=== PATIENT | female | born 2000 | race African-American/Black ===

== ENCOUNTER 2019-03-19 08:06 | Observation (INO) | payer BC ==
[~2019-03-19] VITALS: Ht 163.8 cm; Wt 54.9 kg
[~2019-03-19 08:06] MED LIST: PRED20TA PO
--- NOTE | 2019-03-19 08:33 | PHYS DOC ---
Past History Past Medical History: Asthma Past Surgical History: No Surgical History Smoking: Non-smoker Alcohol Use: None Drug Use: None Adult General Chief Complaint Chief Complaint: CHEST PAIN [facility] HPI Patient is a 18 year old female who presents with ending of chest pain. Patient complaining of substernal chest pain since yesterday as a constant and pressure pain and rated her pain 6-8/10 with episodes of shortness of breath and ge neralized weakness. Patient denies cough, fever and chills, history of chest pain or injury. Review of Systems Review of Systems Constitutional: Denies fever or chills [] Eyes: Denies change in visual acuity, redness, or eye pain [] HENT: Denies nasal congestion or sore throat [] Respiratory: Denies cough or shortness of breath [] Cardiovascular: No additional information not addressed in HPI [] GI: Denies abdominal pain, nausea, vomiting, bloody stools or diarrhea [] : Denies dysuria or hematuria [] Musculoskeletal: Denies back pain or joint pain [] Integument: Denies rash or skin lesions [] Neurologic: Denies headache, focal weakness or sensory changes [] Endocrine: Denies polyuria or polydipsia [] All other systems were reviewed and found to be within normal limits, except as documented in this note. Allergies Allergies Allergies Coded Allergies Type Severity Reaction Last Updated Verified benzoyl peroxide Allergy Severe 05/12/15 No cefadroxil Allergy Intermediate 05/12/15 No Physical Exam Physical Exam Constitutional: Well developed, well nourished, mild distress, non-toxic appearance. [] HENT: Normocephalic, atraumatic, oropharynx moist, no oral exudates, nose normal. [] Eyes: PERRLA, EOMI, conjunctiva normal, no discharge. [] Neck: Normal range of motion, no tenderness, supple, no stridor. [] Cardiovascular:Heart rate regular rhythm, no murmur [] Lungs & Thorax: Bilateral breath sounds clear to auscultation [] Abdomen: Bowel sounds normal, soft, no tenderness, no masses, no pulsatile masses. [] Skin: Warm, dry, no erythema, no rash. [] Back: No tenderness, no CVA tenderness. [] Extremities: No tenderness, no cyanosis, no clubbing, ROM intact, no edema. [] Neurologic: Alert and oriented X 3, normal motor function, normal sensory function, no focal deficits noted. [] Psychologic: Affect normal, judgement normal, mood normal. [] Current Patient Data Vital Signs Vital Signs Date Time Temp Pulse Resp B/P (MAP) Pulse Ox O2 Delivery O2 Flow Rate FiO2 03/19/19 08:15 76 18 99 Room Air EKG EKG EKG interpreted by me. EKG at 0817 showed normal sinus rhythm at a rate of 82, n o acute ST and T-wave abnormalities. Radiology/Procedures Radiology/Procedures [address] [address] IMAGING REPORT Signed PATIENT: JOSEPH CHAND ACCOUNT: [id number] : 2000 LOCATION: ER AGE: 18 SEX: F EXAM STATUS: REG ER ORD. PHYSICIAN: LEANNE PEREZ MD REASON: chest pain/heaviness PROCEDURE: CHEST PA & LATERAL CHEST PA LATERAL History: Chest pain, heaviness. Comparison: Two-view chest June 13, 2009. Findings: The cardiomediastinal silhouette is normal. Pulmonary vasculature is normal. The lungs are clear. No pleural effusion or pneumothorax is seen. There is no acute bone abnormality. There is left convexity lower thoracic and lumbar rotoscoliosis. IMPRESSION: No acute cardiopulmonary process. Electronically signed by: Erick Singh MD (03/19/2019 9:02 AM) [id number] DICTATED AND SIGNED BY: ERICK SINGH MD DATE: 03/19/19 0902 CC: LEANNE PEREZ MD; FRANCA JOHNSON NURSE HEALTHCARE MANAGER-C ~ [address] [address] IMAGING REPORT Signed PATIENT: JOSEPH CHAND ACCOUNT: [id number] : 2000 LOCATION: ER AGE: 18 SEX: F EXAM STATUS: REG ER ORD. PHYSICIAN: LEANNE PEREZ MD REASON: substernal pain x's 2 days PROCEDURE: ABDOMEN LTD Indication:Substernal pain for 2 days. TECHNIQUE: Grayscale, color Doppler and spectral waveform is of the abdomen obtained. COMPARISON:None FINDINGS: Pancreas within normal limits. IVC within normal limits. Main portal vein is patent with hepatopedal flow. CBD measures 4 mm in diameter and is within normal limits. Liver measures 14 cm in longest dimension and is normal in size and echogenicity. No cholelithiasis. IMPRESSION: No cholelithiasis. Electronically signed by: Ethan Allred DO (03/19/2019 10:21 AM) [facility] DICTATED AND SIGNED BY: ETHAN ALLRED DO DATE: 03/19/19 1021 CC: LEANNE PEREZ MD; FRANCA JOHNSON ~ Course & Med Decision Making Course & Med Decision Making Pertinent Labs and Imaging studies reviewed. (See chart for details) Evaluation of patient in ER showed 18-year-old female patient with complaining of chest pain since yesterday. Patient had unremarkable physical exam and EKG. Labs showed mild elevation of troponin. Dr. Menard was consulted for admission at 0927 to come and get repeat troponin that was reported 0.0 66 to Accepted admission at 1025. Dragon Disclaimer Dragon Disclaimer This electronic medical record was generated, in whole or in part, using a voice recognition dictation system. Departure Departure: Impression: Primary Impression: Acute chest pain Additional Impression: Elevated troponin Disposition: ADMITTED INPATIENT (at 1026) Admitting Physician: Keyshawn Menard (accepted admission at 1025) Condition: IMPROVED Referrals: FRANCA JOHNSON NP-C (PCP) HEART Score for Chest Pain PTs The HEART Score for CP Pts HEART Score for Chest Pain: HEART Score for Chest Pain Response (Comments) Value History Slighlty/Non-Suspicious 0 ECG Normal 0 Age < 45 0 Risk Factors No Risk Factors 0 Troponin < Normal Limit 0 Total 0 Risk Factors: Risk Factors: DM, Current or recent (<one month) smoker, HTN, HLP, family history of CAD, obesity. Risk Scores: Score 0 - 3: 2.5% MACE over next 6 weeks - Discharge Home Score 4 - 6: 20.3% MACE over next 6 weeks - Admit for Clinical Observation Score 7 - 10: 72.7% MACE over next 6 weeks - Early Invasive Strategies Problem Qualifiers LEANNE PEREZ MD Mar 19, 2019 08:33
[2019-03-19 08:42] LABS: BASO # 0.1 x10^3/uL (0.0-0.2); BASO % 1 % (0-3); EOS # 0.3 x10^3/uL (0.0-0.7); EOS % 3 % (0-3); HEMATOCRIT 40.4 % (36.0-47.0); HEMOGLOBIN 13.7 g/dL (12.0-15.5); LYMPH % 33 % (24-48); MEAN CORPUSCULAR HEMOGLOBIN 32 pg (25-35); MEAN CORPUSCULAR HGB CONC 34 g/dL (31-37); MEAN CORPUSCULAR VOLUME 93 fL (79-100); MONO # 0.7 x10^3/uL (0.0-1.1); MONO % 8 % (0-9); NEUT # 5.1 x10^3uL (1.8-7.7); NEUT % 55 % (31-73); PLATELET COUNT 331 x10^3/uL (140-400); RED BLOOD COUNT 4.35 x10^6/uL (3.50-5.40); RED CELL DISTRIBUTION WIDTH 13.5 % (11.5-14.5); WHITE BLOOD COUNT 9.2 x10^3/uL (4.0-11.0)
[2019-03-19] MEDS ORDERED: IV NORMAL SALINE 1,000ML 1,000 ML IV ONE (08:45)
[2019-03-19 08:57] LABS: ALBUMIN/GLOBULIN RATIO 1.3 (1.0-1.7); CALCIUM 9.6 mg/dL (8.5-10.1); CREATININE 0.8 mg/dL (0.6-1.0); GFR 110.7; MAGNESIUM 1.8 mg/dL (1.8-2.4); POTASSIUM 3.8 mmol/L (3.5-5.1); TOTAL BILIRUBIN 0.2 mg/dL (0.2-1.0); TOTAL PROTEIN 7.2 g/dL (6.4-8.2)
[2019-03-19] MEDS ORDERED: ASPIRIN 81 MG TAB.CHEW PO ONE (09:00)
--- NOTE | 2019-03-19 09:05 | RAD ---
CHEST PA LATERAL History: Chest pain, heaviness. Comparison: Two-view chest June 13, 2009. Findings: The cardiomediastinal silhouette is normal. Pulmonary vasculature is normal. The lungs are clear. No pleural effusion or pneumothorax is seen. There is no acute bone abnormality. There is left convexity lower thoracic and lumbar rotoscoliosis. IMPRESSION: No acute cardiopulmonary process. Electronically signed by: Erick Singh MD (03/19/2019 9:02 AM) [id number]
[2019-03-19 09:50] LABS: U PREG PATIENT NEGATIVE (NEG)
[2019-03-19 09:54] LABS: BACTERIA,URINE MOD /HPF (0-FEW); BILIRUBIN,URINE NEG (NEG); CLARITY,URINE HAZY; COLOR,URINE YELLOW; GLUCOSE,URINE NEG (NEG); NITRITE,URINE NEG (NEG); RBC,URINE 0 /HPF (0-2); UROBILINOGEN,URINE 0.2 mg/dL (0.2 mg/dL)
[2019-03-19 09:55] LABS: SQUAMOUS EPITHELIAL CELL,UR MANY /LPF
--- NOTE | 2019-03-19 10:23 | RAD ---
Indication:Substernal pain for 2 days. TECHNIQUE: Grayscale, color Doppler and spectral waveform is of the abdomen obtained. COMPARISON:None FINDINGS: Pancreas within normal limits. IVC within normal limits. Main portal vein is patent with hepatopedal flow. CBD measures 4 mm in diameter and is within normal limits. Liver measures 14 cm in longest dimension and is normal in size and echogenicity. No cholelithiasis. IMPRESSION: No cholelithiasis. Electronically signed by: Ethan Allred DO (03/19/2019 10:21 AM) [facility]
[2019-03-19 10:53] LABS: AMPHETAMINE/METHAMPHETAMINE NEG (NEG); BARBITURATES NEG (NEG); BENZODIAZEPINES NEG (NEG); CANNABINOIDS NEG (NEG); COCAINE NEG (NEG); METHADONE NEG (NEG); OPIATES NEG (NEG); PHENCYCLIDINE NEG (NEG)
--- NOTE | 2019-03-19 11:13 | HP ---
ADMIT DATE: 03/19/2019 ATTENDING PHYSICIAN: Dr. Freeman. CHIEF COMPLAINT: Chest pain. 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 She presented to the Emergency Department today complaining of localized chest pain, substernal in nature. It is somewhat sharp. It is associated with some shortness of breath. She denied any recent trauma. She has no allergies. As part of the workup, she had an initial EKG, which showed a sinus rhythm without any acute changes; however, her cardiac enzymes and troponin level was slightly elevated at 0.07, the upper limits of normal at this hospital is 0.05. She settled down a bit. She was given some pain relief and a repeat troponin second set drawn 2 hours later was still elevated at 0.06. She denied any recent JOBY FREEMAN MD DR: PRANAY/hammad JOB#: [id number] / [id number]
--- NOTE | 2019-03-19 11:21 | HP ---
ADMIT DATE: 03/19/2019 ATTENDING PHYSICIAN: Dr. Freeman. CHIEF COMPLAINT: Chest pain. 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 She had new onset today of nonexertional chest pain localized in nature, fairly gradual in onset. She denied any recent travel. She denied any fevers, chills, cough or congestion. Chest x-ray demonstrated no evidence of pneumonia. She had an EKG, which showed a sinus rhythm without any acute changes; however, her troponin level ordered in the ED was slightly elevated at 0.07 and the upper limits of normal at this hospital was 0.05. We checked a second troponin 2 hours later and it still remained elevated at 0.06. Because of her symptoms, she was admitted to the hospital for further evaluation, Cardiology consultation and echocardiogram. She is a nonsmoker, nondrinker. She is not diabetic. She is fairly healthy otherwise. PAST MEDICAL HISTORY: Unremarkable for any chronic illnesses. There is no history of hypertension, diabetes. SOCIAL HISTORY: She is a nonsmoker, nondrinker. She gets a Depo-Provera shot every 3 months. ALLERGIES: She has no recorded drug allergies. PRESCRIPTION MEDICATIONS: None except for the injectable contraceptive. FAMILY HISTORY: Her mom and dad are alive at age 46 and 49 respectively. No significant health issues. PAST SURGICAL HISTORY: She has not had any previous surgeries. REVIEW OF SYSTEMS: Significant for the localized chest pain. No fevers, chills, palpitations. No nausea, vomiting, diarrhea. No recent travel. All other systems reviewed and determined to be negative. She has some allergies to BENZOYL PEROXIDE and CEPHALOSPORINS. PHYSICAL EXAMINATION: GENERAL: When I saw her, this is a pleasant, thin young female in no acute distress. INITIAL VITAL SIGNS: Showed a blood pressure of 130 systolic, pulse is 76 and regular. She was afebrile. HEENT: Head is without trauma. Pupils are reactive. Sclerae nonicteric. Oropharynx clear. NECK: Supple. No bruits identified. LUNGS: Otherwise clear. CARDIOVASCULAR: Showed regular heart tones. No obvious gallops. Peripheral pulses are palpable full. ABDOMEN: Soft, scaphoid, nontender, no organomegaly. Bowel sounds are hypoactive. EXTREMITIES: Showed no cyanosis or edema. NEUROLOGIC: Findings focally intact. No deficits. PERTINENT LABORATORY STUDIES: Troponin levels as noted. The EKG showed no acute changes. IMPRESSION: 1. A 18-year-old female with atypical chest pain, moderate in severity, etiology is unclear. 2. Elevated troponins 2 sets that were slightly elevated. Certainly, this is concerning and a viral cardiomyopathy in early form should be ruled out. PLAN: 1. Admit to the inpatient unit. 2. Telemetry monitoring. 3. Echocardiogram. 4. Formal Cardiology consultation later today. JOBY FREEMAN MD DR: PRANAY/hammad JOB#: [id number] / [id number]
[2019-03-19 12:18] VITALS: BP 114/73
[2019-03-19 14:35] VITALS: BP 97/57
--- NOTE | 2019-03-19 16:22 | CARD ---
MR#: [id number] Date of Study: 03/19/2019 Ordering Physician: JOBY FREEMAN, Referring Physician: JOBY FREEMAN, Tech: Bonny Escamilla APPROVED REPORT EXAM: Two-dimensional and M-mode echocardiogram with Doppler and color Doppler. Other Information Quality : AverageHR: 60bpm INDICATION Chest Pain Elevated Troponin 2D DIMENSIONS RVDd2.5 (2.9-3.5cm)IVSd0.6 (0.7-1.1cm) Aortic Root(2D)2.7 (2.0-3.7cm)LVDd3.8 (3.9-5.9cm) PWd0.8 (0.7-1.1cm)LVDs2.7 (2.5-4.0cm) FS (%) 29.7 %SV35.4 ml LVEF(%)57.6 (>50%) Aortic Valve AoV Peak Norbert.109.1cm/sAoV VTI26.3cm AO Peak GR.4.8mmHgAO Mean GR.4mmHg DIANNE (VTI)2.36cm2 Mitral Valve MV E Npiyyutw267.0cm/sMV DECEL [id number] MV A Emjjtvqd85.6cm/sE/A Ratio2.5 Tricuspid Valve TR P. Shjckbvl866sw/sRAP GJMVDOYM1wyWu TR Peak Gr.82axJvKPYC62raSo LEFT VENTRICLE The left ventricle is normal size. There is normal left ventricular wall thickness. The left ventricu lar systolic function is normal. The Ejection Fraction is 55-60%. There is normal LV segmental wall m otion. The left ventricular diastolic function and filling is normal for age. RIGHT VENTRICLE The right ventricle is normal size. There is normal right ventricular wall thickness. The right ventr icular systolic function is normal. ATRIA The left atrium size is normal. The right atrium size is normal. The interatrial septum is intact wit h no evidence for an atrial septal defect or patent foramen ovale as noted on 2-D or Doppler imaging. AORTIC VALVE The aortic valve is normal in structure and function. Doppler and Color Flow revealed no significant aortic regurgitation. There is no significant aortic valvular stenosis. MITRAL VALVE The mitral valve is normal in structure and function. There is no evidence of mitral valve prolapse. There is no mitral valve stenosis. Doppler and Color Flow revealed no mitral valve regurgitation note d. TRICUSPID VALVE The tricuspid valve is normal in structure and function. Doppler and Color Flow revealed trace tricus pid regurgitation with an estimated PAP of 25 mmHg. There is no tricuspid valve prolapse or vegetatio n. There is no tricuspid valve stenosis. PULMONIC VALVE The pulmonic valve is not well visualized. Doppler and color-flow analysis was performed. GREAT VESSELS The aortic root is normal in size. The IVC is normal in size and collapses >50% with inspiration. PERICARDIAL EFFUSION There is small left pleural effusion. There is no evidence of significant pericardial effusion. Critical Notification Critical Value: No <Conclusion> The left ventricular systolic function is normal. The Ejection Fraction is 55-60%. There is normal LV segmental wall motion. Trace tricuspid regurgitation with an estimated PAP of 25 mmHg. There is no evidence of significant pericardial effusion. Signed by : Gordo Suarez, Electronically Approved : 03/19/2019 16:21:51
[2019-03-19] MEDS: HYDROmorphone PF 1 MG/ML DISP.SYRIN IVP PRN ×3 (16:56→22:39)
[2019-03-19 20:16] VITALS: BP 109/73
[2019-03-19 23:21] VITALS: BP 107/56
[2019-03-20] MEDS: LORazepam 1 MG TABLET PO PRN ×2 (00:03→09:23)
[2019-03-20 06:39] VITALS: BP 102/58
--- NOTE | 2019-03-20 07:53 | PDOC2 ---
CARDIAC CONSULT DATE OF CONSULT Date Of Consult DATE: 03/20/19 TIME: 07:47 REASON FOR CONSULT Reason for Consult Chest pain REFERRING PHYSICIAN Referring Physician Dr. Menard SOURCE Source: Chart review, Patient HPI History of Present Illness This is a 18 yo female who presented secondary to chest pain. Patient reports she was on he way to work yesterday morning and had feeling in her stomach that she was "on a roller coaster". Then began experiencing pain in her central chest. Describes as pressure. Associated with palpitations and tingling in her bilateral upper extremities. No nausea, dizziness, or diaphoresis. [place] slightly short of breath. No specific worsening or relieving factors. Pain seemed to improved without intervention. Pain occurred a couple of times yesterday, but not severe. No further overnight. Denies any recent illness, fevers. Troponin noted to be mildly elevated at 0.07 and repeat at 0.06. Echo showed preserved LV systolic function. No acute events noted on telemetry. Reports she is moving in the near future, but denies any significant stressors or feeling anxious. Does report significant caffeine consumption. PAST MEDICAL HISTORY Pulmonary: Asthma Psych: Anxiety, Depression PAST SURGICAL HISTORY Past Surgical History: No pertinent history FAMILY HISTORY Family History: Diabetes SOCIAL HISTORY Smoke: No ALCOHOL: none Drugs: None Lives: with Family CURRENT MEDICATIONS Current Medications Current Medications Sodium Chloride 1,000 ml @ 1,000 mls/hr 1X ONCE IV Last administered on 03/19/19at 08:45; Start 03/19/19 at 08:45; Stop 03/19/19 at 09:44; Status DC Aspirin (Children'S Aspirin) 324 mg 1X ONCE PO Last administered on 03/19/19at 09:00; Start 03/19/19 at 09:00; Stop 03/19/19 at 09:12; Status DC Hydromorphone HCl (Dilaudid) 0.4 mg PRN Q1HR PRN IVP PAIN Last administered on 03/19/19at 22:39; Start 03/19/19 at 17:00 Lorazepam (Ativan) 1 mg PRN Q8HRS PRN PO ANXIETY Last administered on 03/20/19at 00:03; Start 03/19/19 at 23:45 Active Scripts Active Prednisone 20 Mg Tablet 20 Mg PO BID ALLERGIES Allergies: Coded Allergies: benzoyl peroxide (Unverified Allergy, Severe, 05/12/15) cefadroxil (Unverified Allergy, Intermediate, 05/12/15) ROS Review of Systems 14 point ROS conducted with pertinent positives noted above in HPI. PHYSICAL EXAM General: Alert, Oriented X3, Cooperative, No acute distress HEENT: Atraumatic, Mucous membr. moist/pink Lungs: Clear to auscultation Heart: Regular rate, Normal S1, Normal S2, No murmurs Abdomen: Soft Extremities: No edema, Normal pulses Skin: No breakdown Neuro: Normal speech, Sensation intact Psych/Mental Status: Mental status NL, Mood NL MUSCULOSKELETAL: No deformity, No swelling VITALS Vital Signs Vital Signs Date Time Temp Pulse Resp B/P (MAP) Pulse Ox O2 Delivery O2 Flow Rate FiO2 03/20/19 06:39 98.3 82 18 102/58 (73) 100 03/19/19 23:26 Room Air LABS LABS Laboratory Tests Test 03/19/19 08:29 03/19/19 09:18 03/19/19 09:45 White Blood Count 9.2 x10^3/uL (4.0-11.0) Red Blood Count 4.35 x10^6/uL (3.50-5.40) Hemoglobin 13.7 g/dL (12.0-15.5) Hematocrit 40.4 % (36.0-47.0) Mean Corpuscular Volume 93 fL (79-100) Mean Corpuscular Hemoglobin 32 pg (25-35) Mean Corpuscular Hemoglobin Concent 34 g/dL (31-37) Red Cell Distribution Width 13.5 % (11.5-14.5) Platelet Count 331 x10^3/uL (140-400) Neutrophils (%) (Auto) 55 % (31-73) Lymphocytes (%) (Auto) 33 % (24-48) Monocytes (%) (Auto) 8 % (0-9) Eosinophils (%) (Auto) 3 % (0-3) Basophils (%) (Auto) 1 % (0-3) Neutrophils # (Auto) 5.1 x10^3uL (1.8-7.7) Lymphocytes # (Auto) 3.0 x10^3/uL (1.0-4.8) Monocytes # (Auto) 0.7 x10^3/uL (0.0-1.1) Eosinophils # (Auto) 0.3 x10^3/uL (0.0-0.7) Basophils # (Auto) 0.1 x10^3/uL (0.0-0.2) Sodium Level 140 mmol/L (136-145) Potassium Level 3.8 mmol/L (3.5-5.1) Chloride Level 104 mmol/L (98-107) Carbon Dioxide Level 24 mmol/L (21-32) Anion Gap 12 (6-14) Blood Urea Nitrogen 9 mg/dL (7-20) Creatinine 0.8 mg/dL (0.6-1.0) Estimated GFR (Cockcroft-Gault) 110.7 BUN/Creatinine Ratio 11 (6-20) Glucose Level 78 mg/dL (70-99) Calcium Level 9.6 mg/dL (8.5-10.1) Magnesium Level 1.8 mg/dL (1.8-2.4) Total Bilirubin 0.2 mg/dL (0.2-1.0) Aspartate Amino Transf (AST/SGOT) 14 U/L (15-37) Alanine Aminotransferase (ALT/SGPT) 23 U/L (14-59) Alkaline Phosphatase 114 U/L (46-116) Creatine Kinase 90 U/L (26-192) Troponin I Quantitative 0.073 ng/mL (0-0.055) 0.066 ng/mL (0-0.055) Total Protein 7.2 g/dL (6.4-8.2) Albumin 4.0 g/dL (3.4-5.0) Albumin/Globulin Ratio 1.3 (1.0-1.7) Lipase 79 U/L (73-393) Urine Collection Type Unknown Urine Color Yellow Urine Clarity Hazy Urine pH 6.0 Urine Specific [place] 1.020 Urine Protein Neg (NEG-TRACE) Urine Glucose (UA) Neg mg/dL (NEG) Urine Ketones (Stick) Neg mg/dL (NEG) Urine Blood Neg (NEG) Urine Nitrite Neg (NEG) Urine Bilirubin Neg (NEG) Urine Urobilinogen Dipstick 0.2 mg/dL (0.2 mg/dL) Urine Leukocyte Esterase Small (NEG) Urine RBC 0 /HPF (0-2) Urine WBC 5-10 /HPF (0-4) Urine Squamous Epithelial Cells Many /LPF Urine Bacteria Mod /HPF (0-FEW) Urine Mucus Marked /LPF Urine Test Negative (NEG) Urine Opiates Screen Neg (NEG) Urine Methadone Screen Neg (NEG) Urine Barbiturates Neg (NEG) Urine Phencyclidine Screen Neg (NEG) Urine Amphetamine/Methamphetamine Neg (NEG) Urine Benzodiazepines Screen Neg (NEG) Urine Cocaine Screen Neg (NEG) Urine Cannabinoids Screen Neg (NEG) Urine Ethyl Alcohol Neg (NEG) ECHOCARDIOGRAM Echocardiogram <Conclusion> The left ventricular systolic function is normal. The Ejection Fraction is 55-60%. There is normal LV segmental wall motion. Trace tricuspid regurgitation with an estimated PAP of 25 mmHg. There is no evidence of significant pericardial effusion. DATE: 03/19/19 1621 ASSESSMENT/PLAN Assessment/Plan 1. Chest pain, atypical. Troponin mildly elevated at 0.07. Repeat at 0.06. Echo with preserved LV systolic function. No further pain overnight. 2. Palpitations; no acute events noted on telemetry. Reports high caffeine intake. 3. Anxiety; as per PCP Recommendations May discharge from a cardiac standpoint Follow up in our office at [facility] April 17 at 12:45. Decrease caffeine intake Consider outpatient event monitor if palpitations recurrent. LEI SEGURA APRN Mar 20, 2019 07:53
[2019-03-20 09:21] VITALS: BP 113/71
--- NOTE | 2019-03-20 17:59 | DS ---
DATE OF DISCHARGE: 03/19/2019 ATTENDING PHYSICIAN: Dr. Freeman FINAL DISCHARGE DIAGNOSES: 1. Atypical chest pain, noncardiac in nature. 2. Underlying anxiety component. 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 She presented to the ED with nonexertional chest pain, localized, central, very symptomatic. She had a negative workup. She had a slightly elevated troponin. We suspect a viral etiology. She was admitted for further treatment and evaluation. PAST MEDICAL HISTORY: Unremarkable for any chronic illness. She only takes a Depo-Provera shot every 3 months for control. PHYSICAL EXAMINATION: Please see the dictated note. PERTINENT LABORATORY AND X-RAY STUDY: Her CBC showed normal hemoglobin 13.7 g/dL with the white count of 9200. Electrolytes, BUN, and creatinine were all within normal range. Liver functions were normal. The first set of troponin was 0.07, second set was 0.06. The echocardiogram showed a sinus rhythm, normal ejection fraction, and no wall motion abnormalities; otherwise, unremarkable echocardiogram. Chest x-ray showed no acute cardiopulmonary process. COURSE IN THE HOSPITAL: The patient was admitted. She was started on pain control along with p.r.n. Ativan for anxiety. She did well. Pain subsided. Diet was advanced. Echocardiogram done, showed normal ejection fraction without any significant abnormalities. A Cardiology consultation was placed, they evaluated the patient and felt that this is self-limiting in nature and noncardiac. On the second hospital day, we sat down for a long time. Both her parents were there as well as her boyfriend. There was some underlying anxiety component she would not go into detail. In any event, she is scared and apprehensive, I wrote a script for Percocet 7.5/325 one every 6 hours p.r.n. pain. She is to follow a regular diet. She should call for any further issues. I reassured her that this condition was self-limiting and that there are no serious cardiac issues at this time. I also explained to her chest x-ray was clear. She does not have any infectious process at this time. She was discharged from our hospital in stable condition with explicit instructions and followup care. JOBY FREEMAN MD DR: PRANAY/hammad JOB#: [id number] / [id number]
--- NOTE | 2019-03-21 11:08 | EKG ---
[address] [address] Test Date: 2019-03-19 Test Time: 08:17:44 Pat Name: JOSEPH CHAND Department: Room: Gender: F Oral And Maxillofacial Surgery: : 2000 Requested By: LEANNE PEREZ Order Number: [id number] Reading MD: Measurements Intervals [place] Rate: 82 P: 46 CA: 126 QRS: 70 QRSD: 82 T: 32 QT: 362 QTc: 426 Interpretive Statements SINUS RHYTHM NORMAL ECG RI6.01 No previous ECG available for comparison
== END 2019-03-20 10:45 | disposition home or self-care (01) ==
LOC: ER 08:06 → 1 SOUTH 10:27 → ER 11:51
PROVIDERS: ADMIT Hospitalist; ATTEND Hospitalist
DX: R07.2 Precordial pain (principal); J45.909 Unspecified asthma, uncomplicated; R79.89 Other specified abnormal findings of blood chemistry; F41.9 Anxiety disorder, unspecified; Z83.3 Family history of diabetes mellitus
CPT/HCPCS: 36415; 71046; 76705; 80053; 80307; 81001; 81025; 82550; 83690; 83735; 84484; 85025; 93005; 93306; 96374; 96376; 99284; G0378; J1170; G0379; J7030

== ENCOUNTER 2019-04-12 06:36 | Emergency (ER) | payer OTHER, BC ==
[~2019-04-12] VITALS: Ht 163.8 cm; Wt 54.9 kg
[2019-04-12 07:10] VITALS: BP 132/81
--- NOTE | 2019-04-12 07:11 | PHYS DOC ---
Past History Past Medical History: Asthma Past Surgical History: No Surgical History Smoking: Non-smoker Alcohol Use: None Drug Use: None Adult General Chief Complaint Chief Complaint: chest pain [facility] HPI 18-year-old female presents to emergency room with central chest pain. 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 Around 6:15 AM she developed a central stabbing chest pain. It was moderate to severe. It did not radiate anywhere. It has faded in intensity over the last 45 minutes. It is not completely gone. She had some feeling of being lightheaded or dizzy, but denies shortness of breath or diaphoresis. She decided to be evaluated today because this pain is more severe than the other intermittent chest pain she been having. Her usual pain is a feeling of heaviness. The patient does have panic attacks, but usually does not have chest pain just shortness of breath and fast breathing. The patient was admitted to this facility with chest pain within the last month. She had a slight bump in her troponin. Cardiology consult in the hospital was reassuring. She was discharged from the hospital with presumed viral illness. She is to follow up with cardiology. Her appointment is in 5 days. She saw her PCP yesterday and had no new complaints. She denies any drug use. She does not have a history of GERD. She only drinks one cup of coffee overnight. She does not drink energy drinks. She is not taking any herbals, supplements or diet pills. She denies fever or chills. Review of Systems Review of Systems Constitutional: Denies fever or chills [] Eyes: Denies change in visual acuity, redness, or eye pain [] HENT: Denies nasal congestion or sore throat [] Respiratory: Denies cough or shortness of breath [] Cardiovascular: No additional information not addressed in HPI [] GI: Denies abdominal pain, nausea, vomiting, bloody stools or diarrhea [] : Denies dysuria or hematuria [] Musculoskeletal: Denies back pain or joint pain [] Integument: Denies rash or skin lesions [] Neurologic: Denies headache, focal weakness or sensory changes [] Endocrine: Denies polyuria or polydipsia [] All other systems were reviewed and found to be within normal limits, except as documented in this note. Allergies Allergies Allergies Coded Allergies Type Severity Reaction Last Updated Verified benzoyl peroxide Allergy Severe 05/12/15 No cefadroxil Allergy Intermediate 05/12/15 No Physical Exam Physical Exam Constitutional: Well developed, well nourished, no acute distress, non-toxic appearance. [] HENT: Normocephalic, atraumatic, bilateral external ears normal, oropharynx moist, no oral exudates, nose normal. [] Eyes: PERRLA, EOMI, conjunctiva normal, no discharge. [] Neck: Normal range of motion, no tenderness, supple, no stridor. [] Cardiovascular:Heart rate regular rhythm, no murmur [] Lungs & Thorax: Bilateral breath sounds clear to auscultation [] Abdomen: Bowel sounds normal, soft, no tenderness, no masses, no pulsatile masses. [] Skin: Warm, dry, no erythema, no rash. [] Back: No tenderness, no CVA tenderness. [] Extremities: No tenderness, no cyanosis, no clubbing, ROM intact, no edema. [] Neurologic: Alert and oriented X 3, normal motor function, normal sensory function, no focal deficits noted. [] Psychologic: Affect normal, judgement normal, mood normal. [] EKG EKG Sinus rhythm, rate 71, normal axis, no ST elevations or depressions[] Radiology/Procedures Radiology/Procedures [] Impressions: Indication:Midsternal chest pain. Onset this morning. TECHNIQUE:Portable AP chest X-ray COMPARISON: 03/19/2019 FINDINGS: Heart is normal in size. Lungs are clear. No pneumothorax or pleural effusion. Mild levoscoliosis of the upper lumbar spine. Otherwise, visualized bony thorax within normal limits. IMPRESSION: No acute pulmonary process. Electronically signed by: Ethan Godoy DO (04/12/2019 7:52 AM) [facility] DICTATED AND SIGNED BY: ETHAN GODOY DO DATE: 04/12/19 0752 CC: ELISHA YEBOAH DO; FRANCA JOHNSON ~ Course & Med Decision Making Course & Med Decision Making Pertinent Labs and Imaging studies reviewed. (See chart for details) The patient's troponin was 0.063. This is slightly less than her to previous troponins from her last admission. Her EKG is unremarkable. Her chest x-ray is unremarkable. The rest for lab work is unremarkable. I'll not sure what's causing the patient's discomfort, but it does not appear to be any acute cardiopulmonary process. I believe it is important for her to continue to have her follow-up with her primary physician as well as cardiology. She will continue these appointments. She is stable for discharge at this time. [] Dragon Disclaimer Dragon Disclaimer This electronic medical record was generated, in whole or in part, using a voice recognition dictation system. Departure Departure: Impression: Primary Impression: Chest pain Disposition: HOME, SELF-CARE Condition: STABLE Referrals: FRANCA JOHNSON PROCESS DEVELOPER-C (PCP) Patient Instructions: Chest Pain (Nonspecific), Fybj-nu-Qdlc Scripts No Active Prescriptions or Reported Meds Problem Qualifiers Primary Impression: Chest pain Chest pain type: unspecified Qualified Codes: R07.9 - Chest pain, unspecified ELISHA YEBOAH DO Apr 12, 2019 07:10
--- NOTE | 2019-04-12 07:15 | EKG ---
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
[2019-04-12 07:16] LABS: BASO # 0.1 x10^3/uL (0.0-0.2); BASO % 1 % (0-3); EOS # 0.3 x10^3/uL (0.0-0.7); EOS % 3 % (0-3); HEMATOCRIT 44.9 % (36.0-47.0); HEMOGLOBIN 15.3 g/dL (12.0-15.5); LYMPH % 42 % (24-48); MEAN CORPUSCULAR HEMOGLOBIN 31 pg (25-35); MEAN CORPUSCULAR HGB CONC 34 g/dL (31-37); MEAN CORPUSCULAR VOLUME 92 fL (79-100); MONO # 0.8 x10^3/uL (0.0-1.1); MONO % 9 % (0-9); NEUT # 4.3 x10^3uL (1.8-7.7); NEUT % 45 % (31-73); PLATELET COUNT 315 x10^3/uL (140-400); RED CELL DISTRIBUTION WIDTH 13.3 % (11.5-14.5); WHITE BLOOD COUNT 9.6 x10^3/uL (4.0-11.0)
[2019-04-12 07:28] LABS: ALBUMIN 4.7 g/dL (3.4-5.0); ALBUMIN/GLOBULIN RATIO 1.2 (1.0-1.7); CALCIUM 9.3 mg/dL (8.5-10.1); CREATININE 0.8 mg/dL (0.6-1.0); GFR 110.7; POTASSIUM 3.5 mmol/L (3.5-5.1); TOTAL BILIRUBIN 0.4 mg/dL (0.2-1.0); TOTAL PROTEIN 8.6 g/dL (6.4-8.2)
--- NOTE | 2019-04-12 07:55 | RAD ---
Indication:Midsternal chest pain. Onset this morning. TECHNIQUE:Portable AP chest X-ray COMPARISON: 03/19/2019 FINDINGS: Heart is normal in size. Lungs are clear. No pneumothorax or pleural effusion. Mild levoscoliosis of the upper lumbar spine. Otherwise, visualized bony thorax within normal limits. IMPRESSION: No acute pulmonary process. Electronically signed by: Ethan Allred DO (04/12/2019 7:52 AM) [facility]
== END 2019-04-12 08:14 | disposition home or self-care (01) ==
LOC: ER 06:36
DX: R07.89 Other chest pain (principal); R42 Dizziness and giddiness; J45.909 Unspecified asthma, uncomplicated; Z88.8 Allergy status to other drugs, medicaments and biological substances
CPT/HCPCS: 36415; 71046; 80053; 84484; 85025; 93005; 99285

== ENCOUNTER 2019-11-02 06:36 | Emergency (ER) | payer OTHER, BC ==
[~2019-11-02] VITALS: Ht 163.8 cm; Wt 56.8 kg
[2019-11-02 06:38] VITALS: BP 126/77
[2019-11-02] MEDS ORDERED: IV NORMAL SALINE 1,000ML 1,000 ML IV ONE (07:15)
[2019-11-02 07:24] LABS: BILIRUBIN,URINE NEG (NEG); CLARITY,URINE HAZY; COLOR,URINE YELLOW; GLUCOSE,URINE NEG (NEG); NITRITE,URINE NEG (NEG); UROBILINOGEN,URINE 0.2 mg/dL (0.2 mg/dL)
[2019-11-02 07:25] LABS: BACTERIA,URINE FEW /HPF (0-FEW); SQUAMOUS EPITHELIAL CELL,UR MOD /LPF
[2019-11-02] MEDS ORDERED: ONDANSETRON PF 4 MG/2 ML VIAL. IVP ONE (07:30)
[2019-11-02] MEDS ORDERED: KETOROLAC 15 MG/ML VIAL. IVP ONE (07:30)
[2019-11-02] MEDS ORDERED: FAMOTIDINE 20 MG/2 ML VIAL IVP ONE (07:30)
[2019-11-02 07:33] LABS: BASO # 0.1 x10^3/uL (0.0-0.2); BASO % 1 % (0-3); EOS # 0.2 x10^3/uL (0.0-0.7); EOS % 4 % (0-3); HEMATOCRIT 43.5 % (36.0-47.0); LYMPH # 1.8 x10^3/uL (1.0-4.8); LYMPH % 25 % (24-48); MEAN CORPUSCULAR HEMOGLOBIN 31 pg (25-35); MEAN CORPUSCULAR HGB CONC 35 g/dL (31-37); MEAN CORPUSCULAR VOLUME 91 fL (79-100); MONO # 1.1 x10^3/uL (0.0-1.1); MONO % 16 % (0-9); NEUT # 3.9 x10^3uL (1.8-7.7); NEUT % 55 % (31-73); PLATELET COUNT 288 x10^3/uL (140-400); RED BLOOD COUNT 4.78 x10^6/uL (3.50-5.40); RED CELL DISTRIBUTION WIDTH 13.4 % (11.5-14.5); WHITE BLOOD COUNT 7.1 x10^3/uL (4.0-11.0)
--- NOTE | 2019-11-02 07:46 | PHYS DOC ---
Past History Past Medical History: No Pertinent History Past Surgical History: No Surgical History Smoking: Non-smoker Alcohol Use: None Drug Use: None Adult General Chief Complaint Chief Complaint: DIARRHEA HPI HPI Patient is a 19 year old Female who presents with diarrhea that started 3 days ago. Patient states that her symptoms began with lightheadedness and weakness that started on Monday that progressed into diarrhea and intermittent abdominal pain. 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 Patient denies any recent travel outside the country. Denies recent antibiotics use. Reports feeling warm but has not had any fevers. Reports to chills and headaches. 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 Patient recently missed her Depo provera shot in September. Reports to nausea but no vomiting. Review of Systems Review of Systems Constitutional: Denies fever or chills Eyes: Denies redness or eye pain HENT: Denies nasal congestion or sore throat Respiratory: Denies cough or shortness of breath Cardiovascular: Denies chest pain or palpitations GI: Reports abdominal pain and nausea, denies vomiting : Denies dysuria or hematuria, reports increased frequency of urination Musculoskeletal: Denies back pain or joint pain Integument: Denies rash or skin lesions Neurologic: Reports headache, Denies focal weakness or sensory changes Complete systems were reviewed and found to be within normal limits, except as documented in this note. Family History Family History No pertinent family history. Current Medications Current Medications Current Medications Medications (Trade) Dose Ordered Sig/John Start Time Stop Time Status Last Admin Dose Admin Famotidine (Pepcid Vial) 20 mg 1X ONCE 11/02/19 07:30 11/02/19 07:31 Ketorolac Tromethamine (Toradol 15mg Vial) 15 mg 1X ONCE 11/02/19 07:30 11/02/19 07:31 Ondansetron HCl (Zofran) 4 mg 1X ONCE 11/02/19 07:30 11/02/19 07:31 Sodium Chloride 1,000 ml @ 1,000 mls/hr 1X ONCE 11/02/19 07:15 11/02/19 08:14 Allergies Allergies Allergies Coded Allergies Type Severity Reaction Last Updated Verified benzoyl peroxide Allergy Severe 05/12/15 No cefadroxil Allergy Intermediate 05/12/15 No Physical Exam Physical Exam Constitutional: Well developed, well nourished, no acute distress, non-toxic appearance HENT: Normocephalic, atraumatic, oropharynx dry Eyes: PERRL, EOMI, conjunctiva normal, no discharge Neck: Normal range of motion, no tenderness, supple Cardiovascular: Heart rate normal, regular rhythm Lungs & Thorax: Bilateral breath sounds clear to auscultation, no wheezing Abdomen: NBSx4, Soft, no tenderness, no distension, no guarding Skin: Warm, dry, no erythema, no rash Back: No tenderness, no CVA tenderness Extremities: No tenderness, ROM intact, no edema Neurologic: Alert and oriented X 3, normal motor function, normal sensory function, no focal deficits noted Psychologic: Affect normal, judgment normal Current Patient Data Lab Results Laboratory Tests Test 11/02/19 07:05 POC Urine HCG, Qualitative hcg negative (Negative) Course & Med Decision Making Course & Med Decision Making Pertinent Lab studies reviewed. (See chart for details) Patient is a 19 year old female who presents with diarrhea and lightheadedness that started around Monday. Patient reports to nausea but no vomiting. She reports to intermittent abdominal pain. Denies hematuria or dysuria, but reports to having increased frequency of urination. UA showed likely contamination with moderate squamous cells and negative nitrite. Urine hcg was negative. CBC was within normal limits. Potassium was 3.2 and potassium was replaced orally. PIV was started and IVF was ordered. Patient was given Zofran, Ketorolac, and Pepcid for her symptoms. Patient likely presenting with viral gastroenteritis. Patient will be discharged with prescriptions for Zofran, Levsin, and Pepcid. Patient was encouraged to increase intake of potassium and to start a BRAT diet for her diarrhea. Encouraged plenty of fluids and rest. Recommended her to start off with a clear liquid diet and to transition into bland foods. Patient stable for discharge with outpatient follow-up with PCP. Discussed findings and plan with patient and family, who acknowledge understanding and agreement. Carolineon Disclaimer Dragon Disclaimer This electronic medical record was generated, in whole or in part, using a voice recognition dictation system. Departure Departure: Impression: Primary Impression: Nausea vomiting and diarrhea Additional Impression: Hypokalemia Disposition: 01 HOME, SELF-CARE Condition: STABLE Referrals: FRANCA JOHNSON (PCP) WESLEY HERNANDEZ MD Patient Instructions: Clear Liquid Diet, Bnof-cq-Kgin, Diarrhea, Anjl-ty-Zpmq, Diet for Diarrhea, Adult, Hypokalemia-Brief, Nausea and Vomiting, Drvv-er-Joao, Potassium Content of Foods Scripts Ondansetron (ONDANSETRON ODT) 4 Mg Tab.rapdis 1 TAB PO PRN Q6-8HRS PRN for NAUSEA, #16 TAB Prov: CONSUELO ALVARENGA DO 11/02/19 Hyoscyamine Sulfate (LEVSIN-SL) 0.125 Mg Tab.subl 0.125 MG SL Q4-6HRS PRN for PAIN, #14 TAB Prov: CONSUELO ALVARENGA DO 11/02/19 Famotidine (PEPCID) 20 Mg Tablet 1 TAB PO BID for Gastritis, #10 TAB Prov: CONSUELO ALVARENGA DO 11/02/19 Problem Qualifiers CONSUELO ALVARENGA DO Nov 02, 2019 07:46
[2019-11-02] MEDS ORDERED: FAMO-63 PO (08:39)
[2019-11-02] MEDS ORDERED: HYOS0.1265 SL (08:39)
[2019-11-02] MEDS ORDERED: ONDA4TAB12 PO (08:39)
[2019-11-02 08:53] LABS: CALCIUM 8.5 mg/dL (8.5-10.1); CREATININE 0.7 mg/dL (0.6-1.0); GFR 127.8; POTASSIUM 3.2 mmol/L (3.5-5.1)
[2019-11-02 08:58] LABS: ALBUMIN 3.6 g/dL (3.4-5.0); TOTAL BILIRUBIN 0.1 mg/dL (0.2-1.0); TOTAL PROTEIN 7.3 g/dL (6.4-8.2)
[2019-11-02] MEDS ORDERED: POTASSIUM CHLORIDE 20 MEQ TABLET.ER. PO ONE (09:30)
== END 2019-11-02 09:20 | disposition home or self-care (01) ==
LOC: ER 06:36
DX: R11.2 Nausea with vomiting, unspecified (principal); R19.7 Diarrhea, unspecified; E87.6 Hypokalemia; R51 Headache; Z88.8 Allergy status to other drugs, medicaments and biological substances
CPT/HCPCS: 36415; 80053; 81001; 81025; 83690; 85025; 87086; 96361; 96374; 96375; 99284; J1885; J2405; J3490; J7030

== ENCOUNTER 2019-12-19 11:47 | Emergency (ER) | payer OTHER, BC ==
[~2019-12-19] VITALS: Ht 163.8 cm; Wt 56.8 kg
[~2019-12-19 11:47] MED LIST changes: +FAMO-63 PO; +HYOS0.1265 SL; +ONDA4TAB12 PO
[2019-12-19 11:55] VITALS: BP 127/74
--- NOTE | 2019-12-19 12:29 | RAD ---
Examination: CHEST AP ONLY History: Chest tightness Comparison: 04/12/2019 two-view chest x-ray exam. Findings: AP portable upright frontal view of the chest was obtained. The cardiomediastinal silhouette is normal. Lungs are clear. There is no pneumothorax. No pleural effusion is appreciated. No acute bone abnormality. Levoconvex scoliosis of the thoracic and lumbar spine is noted. IMPRESSION: No acute cardiopulmonary process. Electronically signed by: Jose Luis Owens MD (12/19/2019 12:26 PM) [id number]
--- NOTE | 2019-12-19 12:48 | EKG ---
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
[2019-12-19] MEDS ORDERED: ALBU2.5V8 INH (12:52)
--- NOTE | 2019-12-19 12:56 | PHYS DOC ---
Past History Past Medical History: Asthma Additional Past Medical Histor: hiatal hernia Past Surgical History: No Surgical History Smoking: Non-smoker Alcohol Use: None Drug Use: None Adult General Chief Complaint Chief Complaint: COUGH HPI HPI Patient is a 19 year old female who presents with shortness of breath and chest tightness. She states this is now improved. She does have a history of asthma but does not take any inhalers. She has not had any fever or cough. 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 She wears an and 95 mask all the time. She is not had any kind of body aches, headaches, weakness, fatigue, chills, sweats, wheezing. Review of Systems Review of Systems General: Denies fever, chills, sweats, fatigue Eyes: Denies drainage, blurred vision HENT: Denies rhinorrhea, sore throat Respiratory: Denies cough, shortness of breath, wheezing reports chest tightness Cardiac: Denies edema, palpitations, chest pain GI: Denies abdominal pain, N/V MSK: Denies back pain, neck pain Skin: Denies rash, jaundice Neuro: Denies headache, dizziness Psychiatric: Denies SI/HI All other systems were reviewed and found to be within normal limits, except as documented in this note. Allergies Allergies Allergies Coded Allergies Type Severity Reaction Last Updated Verified benzoyl peroxide Allergy Severe 05/12/15 No cefadroxil Allergy Intermediate 05/12/15 No Physical Exam Physical Exam Constitutional: Well developed, well nourished, Cooperative, NAD, non-toxic appearing HEENT: Normocephalic, atraumatic, oropharynx moist, EOMI, PERRL, no drainage from eyes, normal conjunctiva Neck: Supple, normal range of motion, no stridor Cardiovascular: RRR, 2+ radial pulses bilaterally, no edema Respiratory: CTA bilaterally, no respiratory distress, no wheezing/crackles Abdomen: Soft, nontender, nondistended, no masses Skin: Warm, dry, intact Extremities: No obvious deformities Neurologic: Alert and Oriented x3, motor and sensory function grossly normal, no focal deficits Psychologic: Normal affect, normal judgment, normal mood. No SI/HI Current Patient Data Vital Signs Vital Signs Date Time Temp Pulse Resp B/P (MAP) Pulse Ox O2 Delivery O2 Flow Rate FiO2 12/19/19 11:55 98.3 70 18 127/74 (91) 100 Room Air EKG EKG EKG shows normal sinus rhythm, no signs of pericarditis, no signs of STEMI [] Radiology/Procedures Radiology/Procedures Chest x-ray normal [] Course & Med Decision Making Course & Med Decision Making Pertinent Labs and Imaging studies reviewed. (See chart for details) Patient presents to the emergency room after having an episode of chest tightness this morning. Patient is very well-appearing on exam. She has normal vital signs at this time. She does have a history of pericarditis an EKG was done which was normal. There is no signs of pericarditis at this time. Patient has not had any recent URI symptoms. She denies cough, rhinorrhea, fever, chills, sweats, fatigue, weakness. It is unlikely that she has the coronavirus at this time however she could be a asymptomatic carrier. Patient does not have any cough or her respiratory distress while in the emergency room. Chest x-ray is normal. Patient will be given an inhaler as she has a history of asthma and is possible she is having some chest tightness from her allergies with a history of asthma. Patient's test results and vitals while in the ED were fully reviewed and discussed with the patient. Patient is stable and at this time does not need admission to the hospital. We have discussed strict return precautions and the importance of following up with their Primary Care Physician. Patient stated understanding and was given an opportunity to ask any questions. Dragon Disclaimer Dragon Disclaimer This electronic medical record was generated, in whole or in part, using a voice recognition dictation system. Departure Departure: Impression: Primary Impression: Chest tightness Disposition: 01 HOME, SELF-CARE Condition: STABLE Referrals: FRANCA JOHNSON BRUSHING MACHINE OPERATOR-C (PCP) Patient Instructions: Chest Pain (Nonspecific), Dnly-yu-Blbv Scripts Albuterol Sulfate (PROVENTIL HFA INHALER) 6.7 Gm Hfa.aer.ad 1 PUFF INH PRN Q4HRS PRN for FOR ASTHMA for 28 Days, #1 INHALER 0 Refills Prov: JOHN MACKENZIE MD 12/19/19 JOHN MACKENZIE MD Dec 19, 2019 12:56
== END 2019-12-19 13:05 | disposition home or self-care (01) ==
LOC: ER 11:47
DX: R07.89 Other chest pain (principal); R06.02 Shortness of breath; J45.909 Unspecified asthma, uncomplicated; Z88.8 Allergy status to other drugs, medicaments and biological substances
CPT/HCPCS: 71045; 93005; 99283

== ENCOUNTER → 2019-12-25 | Outpatient (CLI) | payer OTHER, BC ==
[2019-12-19 11:55] VITALS: BP 127/74
[~2019-12-25] MED LIST changes: +ALBU2.5V8 INH; +IOHEXOL 350 MG/ML 100 ML VIAL. IV ONE
--- NOTE | 2019-12-25 16:20 | RAD ---
CT ANGIOGRAPHY CHEST INDICATION: Dyspnea. Comparison: Radiograph 12/19/2019. TECHNIQUE: Following the uneventful administration of 75 mL intravenous contrast, axial CT sections were obtained through the lungs and upper abdomen. Multiplanar reconstructions and MIP images were obtained. PQRS compliance statement: One or more of the following individualized dose reduction techniques were utilized for this examination: 1. Automated exposure control 2. Adjustment of the mA and/or kV according to patient size 3. Use of iterative reconstruction technique FINDINGS: Pulmonary arteries: No evidence of pulmonary thromboembolic disease. Lungs and Airways: No pulmonary mass or consolidation. No abnormality of the central airways. Pleura: The pleural spaces are normal. Heart and Mediastinum: The visualized thyroid is normal in size and attenuation. No axillary or supraclavicular lymphadenopathy. No mediastinal, hilar or retrocrural lymphadenopathy. The heart and pericardium are within normal limits. The great vessels of the thorax are normal. Residual thymic tissue. Abdomen: Subcentimeter right hepatic hypodensity is too small to characterize but is likely a cyst. Limited images through the upper abdomen otherwise show no abnormality of the visualized organs. Bones and Soft Tissues: The visualized bones and chest wall soft tissues are within normal limits. IMPRESSION: 1. No evidence of pulmonary thromboembolic disease. 2. No pulmonary mass or consolidation. Electronically signed by: Faheem Suresh MD (12/25/2019 4:17 PM) [id number]
== END | disposition home or self-care (01) ==
LOC: CT 14:55
PROVIDERS: ATTEND Nurse Practitioner Family
DX: R06.02 Shortness of breath (principal)
CPT/HCPCS: 71275; Q9967

== ENCOUNTER → 2020-01-15 | Outpatient (CLI) | payer OTHER, BC ==
[2019-12-19 11:55] VITALS: BP 127/74
[~2020-01-15] MED LIST changes: -IOHEXOL 350 MG/ML 100 ML VIAL. IV ONE
--- NOTE | 2020-01-15 15:08 | CARD ---
MR#: [id number] Date of Study: 01/15/2020 Ordering Physician: FRANCA JOHNSON, Referring Physician: FRANCA JOHNSON, Tech: Bonny Escamilla APPROVED REPORT EXAM: Two-dimensional and M-mode echocardiogram with Doppler and color Doppler. Other Information Quality : AverageHR: 83bpm INDICATION Dyspnea Chest Pain 2D DIMENSIONS RVDd2.6 (2.9-3.5cm)Left Atrium(2D)2.4 (1.6-4.0cm) IVSd0.7 (0.7-1.1cm)Aortic Root(2D)2.6 (2.0-3.7cm) LVDd4.0 (3.9-5.9cm)LVOT Diameter1.7 (1.8-2.4cm) PWd0.7 (0.7-1.1cm)LVDs2.5 (2.5-4.0cm) FS (%) 37.6 %SV46.7 ml LVEF(%)68.3 (>50%) Aortic Valve AoV Peak Norbert.120.7cm/sAoV VTI24.8cm AO Peak GR.5.8mmHgLVOT Peak Norbert.109.1cm/s LVOT VTI 23.68cmAO Mean GR.3mmHg DIANNE (VMAX)2.26mm8WMB (VTI)2.20cm2 Mitral Valve MV E Ypudnwaw84.7cm/sMV DECEL GXYI372nj MV A Aoabrsgy16.0cm/sE/A Ratio1.8 Pulmonary Valve PV Peak Kxmcwkhd11.8cm/sPV Peak Grad.3mmHg Tricuspid Valve TR P. Rwtoelte130zw/sRAP DCQHZDEQ5zlMx TR Peak Gr.22pwGjAWAE65lcVf LEFT VENTRICLE The left ventricle is normal size. There is normal left ventricular wall thickness. The left ventricu lar systolic function is normal. The Ejection Fraction is 55-60%. There is normal LV segmental wall m otion. The left ventricular diastolic function and filling is normal for age. RIGHT VENTRICLE The right ventricle is normal size. There is normal right ventricular wall thickness. The right ventr icular systolic function is normal. ATRIA The left atrium size is normal. The right atrium size is normal. The interatrial septum is intact wit h no evidence for an atrial septal defect or patent foramen ovale as noted on 2-D or Doppler imaging. AORTIC VALVE The aortic valve is normal in structure and function. Doppler and Color Flow revealed no significant aortic regurgitation. There is no significant aortic valvular stenosis. MITRAL VALVE The mitral valve is normal in structure and function. There is no evidence of mitral valve prolapse. There is no mitral valve stenosis. Doppler and Color-flow revealed trace mitral regurgitation. TRICUSPID VALVE The tricuspid valve is normal in structure and function. Doppler and Color Flow revealed trace tricus pid regurgitation with an estimated PAP of 32 mmHg. There is no tricuspid valve stenosis. PULMONIC VALVE The pulmonic valve is not well visualized. Doppler and Color Flow revealed no pulmonic valvular regur gitation. GREAT VESSELS The aortic root is normal in size. The IVC is normal in size and collapses >50% with inspiration. PERICARDIAL EFFUSION There is no evidence of significant pericardial effusion. Critical Notification Critical Value: No <Conclusion> The left ventricular systolic function is normal. The Ejection Fraction is 55-60%. There is normal LV segmental wall motion. Trace mitral regurgitation. Trace tricuspid regurgitation with an estimated PAP of 32 mmHg. There is no evidence of significant pericardial effusion. Signed by : Gordo Suarez, Electronically Approved : 01/15/2020 15:08:11
== END | disposition home or self-care (01) ==
LOC: ECHO 13:58
PROVIDERS: ATTEND Nurse Practitioner Family
DX: R06.02 Shortness of breath (principal); R07.9 Chest pain, unspecified
CPT/HCPCS: 93306

== ENCOUNTER → 2020-03-26 | Outpatient (CLI) | payer OTHER, BC ==
--- NOTE | 2020-03-26 11:22 | RAD ---
Examination: Ultrasound pelvis HISTORY: History of urinary tract infection. Abnormal uterine bleeding COMPARISON: None available FINDINGS: The uterus measures 6.2 x 3.8 x 2.6 cm. Endometrium measures 3 mm in thickness. The right ovary measures 5.2 x 4.4 x 5.6 cm. There is a 5.2 cm cystic structure identified in the right ovary. The left ovary measures 3.3 x 2.4 x 1.4 cm Blood flow identified in the right and left ovaries. Urinary bladder is mildly distended. Mild echogenicity identified in the urinary bladder. IMPRESSION: 1. 5.2 cm right ovarian cyst. Recommend follow-up examination to document stability. 2. Small amount of debris identified in the urinary bladder. Electronically signed by: Toni Mcfarland MD (03/26/2020 11:19 AM) [id number]
== END ==
LOC: US 09:55
PROVIDERS: ATTEND Nurse Practitioner Family
DX: N32.89 Other specified disorders of bladder (principal); N83.201 Unspecified ovarian cyst, right side
CPT/HCPCS: 76856

== ENCOUNTER → 2020-04-30 | Outpatient (CLI) | payer OTHER, BC ==
--- NOTE | 2020-04-30 11:33 | RAD ---
Transabdominal ultrasound 04/30/2020 INDICATION: Right ovarian cyst, follow-up COMPARISON STUDY: Pelvic ultrasound March 26, 2020 Discussion: Transabdominal ultrasound was performed. Static images are submitted to PACS. The patient atelectasis is not to undergo a transvaginal exam Uterus measures 5.8 x 4.0 x 2.9 cm. Endometrium is 0.4 cm in thickness. No focal uterine lesions are identified. No significant free fluid is seen in the pelvis.. Overlying gas filled bowel obscures the right adnexa.Previously seen approximately 5 cm cystic lesion in the right adnexa is not visualized on today's exam. The right ovary is nonvisualized. Left ovary is normal in appearance measuring 1.9 x 1.6 0.9 cm. Blood flow to left ovary is intact on color Doppler imaging. IMPRESSION: 1. Nonvisualization of the right adnexa and ovary secondary to overlying gas filled bowel. Previously identified right ovarian cyst is therefore not evaluated. Patient elected not to have a transvaginal ultrasound exam. Consider a follow-up exam, possibly with transvaginal imaging or consider pelvic MRI for further evaluation. 2. Otherwise normal sonographic appearance of the pelvis Electronically signed by: Vivek Carter MD (04/30/2020 11:30 AM) [id number]
== END ==
LOC: US 10:57
PROVIDERS: ATTEND Nurse Practitioner Family
DX: N83.201 Unspecified ovarian cyst, right side (principal)
CPT/HCPCS: 76830; 76856